=== PATIENT | female | born 1950 | race Hispanic/Latino ===

== ENCOUNTER → 2023-10-06 | Outpatient (CLI) | payer BC, OTHER | END | disposition home or self-care (01) | LOC: SHCH 12:53 | PROVIDERS: ATTEND Internal Medicine Cardiovascular Disease | DX: I34.0 Nonrheumatic mitral (valve) insufficiency (principal); R06.00 Dyspnea, unspecified | CPT/HCPCS: 93306 ==

== ENCOUNTER 2024-05-14 13:00 | Inpatient (IN) | payer OTHER ==
[2024-05-13 15:26] LABS: BASOPHILS # (AUTO) 0.05 K/uL (0.00-0.20); BASOPHILS % (AUTO) 0.6 % (0.0-5.0); EOSINOPHILS # (AUTO) 0.25 K/uL (0.00-0.70); EOSINOPHILS % (AUTO) 3.1 % (0.0-8.0); HEMATOCRIT 38.8 % (36-48); IMMATURE GRANULOCYTE ABSOLUTE 0.03 K/uL (0-1); LYMPHOCYTES # (AUTO) 3.3 K/uL (1.0-4.8); LYMPHOCYTES % (AUTO) 40.8 % (21.0-51.0); MEAN CORPUSCULAR HEMOGLOBIN 28.5 pg (27.0-33.0); MEAN CORPUSCULAR HGB CONC 32.5 g/dL (32.0-36.0); MEAN CORPUSCULAR VOLUME 87.8 fL (79-99); MONOCYTES # (AUTO) 0.4 K/uL (0.1-1.0); MONOCYTES % (AUTO) 4.8 % (3.0-13.0); NEUTROPHILS # (AUTO) 4.1 K/uL (1.8-7.7); NEUTROPHILS % (AUTO) 50.3 % (40.0-77.0); PLATELET COUNT (AUTO) 346 K/uL (130-400); RED BLOOD CELL COUNT(AUTO) 4.42 MIL/uL (4.00-5.50); RED CELL DISTRIBUTION WIDTH 14.2 % (11.0-15.5); WHITE BLOOD COUNT (AUTO) 8.2 K/uL (4.8-10.8)
[2024-05-13 15:48] VITALS: BP 142/63; PULSE 55; RESP 16; TEMP 98.1
[2024-05-13 16:00] LABS: CREATININE 0.6 mg/dL (0.5-1.0); POTASSIUM 3.9 mmol/L (3.5-5.1)
[~2024-05-14] VITALS: Ht 147.3 cm; Wt 106.0 kg
[~2024-05-14 13:00] MED LIST: ESCI-8 PO; HYDR25TA PO; LOSA25TA41 PO; METO25TA6 PO
[2024-05-16] VITALS (32 sets, daily range): BP systolic 118–174; BP diastolic 56–78; PULSE 47–111; RESP 13–18; TEMP 97.6–98.5; O2SAT 93–96
[2024-05-16] MEDS: ceFAZolin SODIUM 2 GM VIAL ONE (07:31)
[2024-05-16] MEDS: LACTATED RINGERS 1000ML 1,000 ML IV ONE (07:31)
[2024-05-16] MEDS: metRONIDazole 500MG/100ML BAG 200 ML ONE (07:31)
[2024-05-16] MEDS: FAMOTIDINE 20MG VIAL IV ONE (07:53)
[2024-05-16] MEDS: acetaMINOPHEN 1,000 MG/100 ML VIAL IV ONE (07:53)
[2024-05-16] MEDS: IpraTROPium/alBUTERol SULFATE 3 ML SOLUTION IH ONE ×3 (08:00→13:11)
[2024-05-16 08:29] LABS: INR 1.06 (0.85-1.15); PROTHROMBIN TIME 11.4 SEC (9.6-11.6)
[2024-05-16 08:30] LABS: PARTIAL THROMBOPLASTIN TIME 30.5 SEC (26.3-35.5)
[2024-05-16] MEDS ORDERED: rocuRONium bROMide 10MG/1ML 5ML VL ONE ×2 (08:53→11:16)
[2024-05-16] MEDS ORDERED: proPOFol 10 MG/ML 20ML VIAL IV ONE (08:53)
[2024-05-16] MEDS ORDERED: LIDOCAINE PF 100MG/5ML (2%) SYRINGE 5ML ONE (08:53)
[2024-05-16] MEDS ORDERED: FENTanyl CITRate PF 50 MCG/1 ML 2ML VIAL ONE (08:54)
[2024-05-16] MEDS ORDERED: BUPIvacaine/PF 0.25% 30ML VIAL IJ ONE (09:58)
[2024-05-16] MEDS ORDERED: ketaMINE 50MG/ML SYRINGE 50 MG/ML DISP.SYRIN ONE (10:00)
[2024-05-16] MEDS ORDERED: ONDANSETRON 4MG INJ ONE (10:11)
[2024-05-16] MEDS ORDERED: dexaMETHasone SOD PHOSPHATE 10MG/ML 1ML VIAL ONE (10:11)
[2024-05-16] MEDS: ceFAZolin SODIUM 2 GM VIAL IVPB ONE (10:15)
[2024-05-16] MEDS ORDERED: NEOSTIGMINE METHYLSULFATE 1MG/ML IV ONE (10:17)
[2024-05-16] MEDS ORDERED: GLYCOPYRROLATE 0.2 MG/ML 5 ML VIAL ONE (10:17)
[2024-05-16] MEDS ORDERED: ePHEDrine SULFate 50 MG/ML AMPULE ONE (10:22)
[2024-05-16] MEDS ORDERED: ceFAZolin SODIUM 1 GM VIAL ONE (11:52)
[2024-05-16] MEDS: hydrALAZine 20MG/ML VIAL ONE (13:09)
[2024-05-16] MEDS: MEPERIDINE-PF 25 MG/ML SYG ONE (13:10)
[2024-05-16] MEDS: ONDANSETRON 4MG INJ ONE (13:11)
[2024-05-16] MEDS ORDERED: ketOROlac 15MG/ML VIAL (15MG/ML) IV PRN (13:30)
[2024-05-16] MEDS ORDERED: hydroMORPHone 0.5 MG SYG (0.5MG/0.5ML) IVP PRN (14:00)
[2024-05-16] MEDS ORDERED: acetaMINOPHEN 1,000 MG/100 ML VIAL IV PRN (15:00)
[2024-05-16] MEDS: ONDANSETRON 4MG INJ IVP PRN (16:52)
[2024-05-16] MEDS: ENOXAPARIN SODIUM 40 MG/0.4 ML SYRINGE SQ SCH (16:53)
[2024-05-16] MEDS: LACTATED RINGERS 1000ML 1,000 ML IV SCH (16:53)
[2024-05-16] MEDS: FAMOTIDINE 20MG VIAL IV SCH (21:08)
[2024-05-17] VITALS: BP 159/70; PULSE 65; RESP 20; TEMP 97.9
[2024-05-17] MEDS: HYDROcod/acetaMINOPHEN 7.5/325 MG 15 ML UDCUP PO PRN (03:22)
[2024-05-17] MEDS: PROCHLORPERAZINE 10MG/2ML INJ IV PRN (03:27)
[2024-05-17 04:00] VITALS: BP 147/50; PULSE 68; RESP 18; TEMP 98.5
[2024-05-17 08:00] VITALS: O2SAT 98
[2024-05-17 08:04] VITALS: BP 110/53; PULSE 67; RESP 16; TEMP 98.5
[2024-05-17] MEDS: SIMETHICONE 80 MG TAB.CHEW PO SCH (08:54)
[2024-05-17] MEDS ORDERED: ONDANSETRON 4MG INJ IVP PRN (09:00)
[2024-05-17 11:07] VITALS: BP 112/61; PULSE 66; RESP 16; TEMP 98.1
== END 2024-05-17 16:45 | disposition home or self-care (01) | DRG 621 ==
LOC: DAHIP 05-16 07:03 → 4DH 05-16 15:01
PROVIDERS: ADMIT Surgery; ATTEND Surgery
PROC: 0DUU47Z Supplement Omentum with Autologous Tissue Substitute, Percutaneous Endoscopic Approach (ICD-10-PCS; 2024-05-16)
PROC: 0DJ08ZZ Inspection of Upper Intestinal Tract, Via Natural or Artificial Opening Endoscopic (ICD-10-PCS; 2024-05-16)
PROC: 0DB64Z3 Excision of Stomach, Percutaneous Endoscopic Approach, Vertical (ICD-10-PCS; principal; 2024-05-16 10:02)
PROC: 0DQL4ZZ Repair Transverse Colon, Percutaneous Endoscopic Approach (ICD-10-PCS; 2024-05-16 10:02)
DX: E66.01 Morbid (severe) obesity due to excess calories (principal); Z68.42 Body mass index [BMI] 45.0-49.9, adult; K66.0 Peritoneal adhesions (postprocedural) (postinfection); I10 Essential (primary) hypertension; E78.2 Mixed hyperlipidemia; G47.33 Obstructive sleep apnea (adult) (pediatric); K76.0 Fatty (change of) liver, not elsewhere classified; Z90.710 Acquired absence of both cervix and uterus; Z90.49 Acquired absence of other specified parts of digestive tract
CPT/HCPCS: 36415; 43235; 80048; 84132; 85025; 85610; 85730; 86850; 86900; 86901; 94640; 94760; A4606; G0378; J0360; J0690; J0780; J1100; J1650; J2001; J2175; J2405; J2704; J2710; J3010; J3490; J7030; J7120; A4213; A4215; A4216; A4221; A4222; A4223; A4600; A4657; A4663; A4930; A6260; G8980-CI; G8983-CJ; J0665